=== PATIENT | female | born 2000 | race Caucasian/White ===

== ENCOUNTER 2021-02-14 12:50 | Emergency (ER) | payer OTHER ==
[~2021-02-14] VITALS: Ht 162.6 cm; Wt 94.3 kg
[~2021-02-14 12:50] MED LIST: DIFLUCAN150 MG PO; GLUCOPHAGE XR500 MG PO; LORTABELXR PO; MACROBID 100 M100 M1 PO; NORCO 5-325 TA1 EACH PO; ZOLOFT25 MG; ZPAK PO
[2021-02-14 13:06] LABS: URINE BILIRUBIN NEGATIVE (Negative); URINE BLOOD 3+ (Negative); URINE CLARITY CLEAR; URINE COLOR YELLOW; URINE GLUCOSE-RANDOM NEGATIVE (Negative); URINE KETONES NEGATIVE (Negative); URINE LEUKOCYTES-REFLEX NEGATIVE (Negative); URINE NITRITE-REFLEX NEGATIVE (Negative); URINE PROTEIN NEGATIVE (Negative); URINE SPECIFIC GRAVITY >= 1.030 (1.005-1.030); URINE UROBILINOGEN 0.2 E.U./dl (0.2-1.0)
[2021-02-14 13:16] LABS: CASTS None Seen /LPF (None Seen); CRYSTALS None Seen /LPF (None Seen); SQUAMOUS 0-3 Few /LPF (0-3); URINE RBC 0-2 Rare /HPF (0-2); URINE WBC-REFLEX 6-15 Few /HPF (0-5)
[2021-02-14 13:34] LABS: ABSOLUTE BASOPHILS 0.1 thou/uL (0.0-0.2); ABSOLUTE EOSINOPHILS 0.1 thou/uL (0.0-0.7); ABSOLUTE LYMPHOCYTES 2.6 thou/uL (0.8-5.3); ABSOLUTE MONOCYTES 0.9 thou/uL (0.0-1.2); ABSOLUTE NEUTROPHILS 11.2 thou/uL (1.6-8.1); BASOPHILS 0.4 %; EOSINOPHILS 0.9 %; HEMATOCRIT 42.4 % (37.0-47.0); HEMOGLOBIN 14.2 gm/dL (12.0-15.0); LYMPHOCYTES 17.2 %; MCHC 33.6 g/dL (28.0-37.0); MCV 86.5 fL (80.0-100.0); MONOCYTES 5.8 %; MPV 8.1 fl. (7.2-11.1); NUCLEATED RBCS 0 /100WBC; PLATELET COUNT* 415 thou/uL (150-400); POLYS 75.7 %; RDW-CV 13.1 % (10.5-14.5); WBC 14.9 thou/uL (4.0-11.0)
[2021-02-14 14:02] LABS: CALCIUM 9.9 mg/dL (8.5-10.1); CREATININE 0.8 mg/dL (0.6-1.3); POTASSIUM 3.9 mmol/L (3.5-5.1)
[2021-02-14 14:06] LABS: ALBUMIN 3.8 g/dL (3.4-5.0); TOTAL BILIRUBIN 0.4 mg/dL (<0.1-1.0); TOTAL PROTEIN 8.3 g/dL (6.4-8.2)
[2021-02-14] MEDS ORDERED: KEFLEX500 M1 PO ×2 (14:52→14:56)
[2021-02-14] MEDS ORDERED: FLOMAX0.4 MG PO ×2 (14:52→14:56)
[2021-02-14] MEDS ORDERED: PYRIDIUM100 M1 PO ×2 (14:52→14:56)
[2021-02-14] MEDS ORDERED: ZOFRAN ODT4 MG PO ×2 (14:52→14:56)
[2021-02-14] MEDS ORDERED: HYDROCODON-ACE1 EAC7 PO (14:54)
[2021-02-14 15:17] VITALS: BP 110/63
== END 2021-02-14 15:19 | disposition home or self-care (01) ==
LOC: M.ERS 12:50
PROVIDERS: Nurse Practitioner Family
DX: N13.2 Hydronephrosis with renal and ureteral calculous obstruction (principal); R11.2 Nausea with vomiting, unspecified; Z90.49 Acquired absence of other specified parts of digestive tract; Z98.890 Other specified postprocedural states; Z87.42 Personal history of other diseases of the female genital tract; Z79.899 Other long term (current) drug therapy

== ENCOUNTER 2021-06-17 19:50 | Emergency (ER) | payer OTHER ==
[~2021-06-17] VITALS: Ht 165.1 cm; Wt 97.5 kg
[~2021-06-17 19:50] MED LIST changes: +FLOMAX0.4 MG PO; +HYDROCODON-ACE1 EAC7 PO; +KEFLEX500 M1 PO; +PYRIDIUM100 M1 PO; +ZOFRAN ODT4 MG PO
[2021-06-17] MEDS ORDERED: DOXYCYCLINE 10100 MG PO (22:14)
[2021-06-17 23:09] VITALS: BP 129/85
== END 2021-06-17 23:09 | disposition home or self-care (01) ==
LOC: M.ERS 19:50
DX: L02.214 Cutaneous abscess of groin (principal)